=== PATIENT | female | born 1970 | race African-American/Black ===

== ENCOUNTER 2016-11-15 11:15 | Emergency (ER) | payer BC ==
[~2016-11-15] VITALS: Ht 170.2 cm; Wt 104.3 kg
[2016-11-15 11:35] VITALS: BP_SYST 155
--- NOTE | 2016-11-15 11:42 | NUR ---
Dr. Montez in triage seeing pt.
--- NOTE | 2016-11-15 11:48 | NUR ---
Patient to ER bed 7 to gown for evaluation. Side rails up. Report given to Ayala GROVES.
--- NOTE | 2016-11-15 11:50 | NUR ---
Pt. to er [id number] c/o muscle spasm like pain in her right calf past past two days, states that pain has been there now for past 2 months, so the PCP sent her to ER for medical clearence, pain 11/25
--- NOTE | 2016-11-15 11:59 | NUR ---
lab at bedside for blood draw
--- NOTE | 2016-11-15 11:59 | NUR ---
Dr. warner at bedside examining the pt.
[2016-11-15 12:09] LABS: BASOPHILS % (AUTO) 0.8 % (0.0-2.0); EOSINOPHILS # (AUTO) 0.1 K/uL (0.0-0.4); EOSINOPHILS % (AUTO) 1.8 % (0.0-4.0); HEMATOCRIT 37.8 % (36-48); HEMOGLOBIN 12.5 g/dL (12.0-16.0); LYMPHOCYTES % (AUTO) 38.7 % (20.5-51.5); MEAN CORPUSCULAR HEMOGLOBIN 29 pg (27-31); MEAN CORPUSCULAR HGB CONC 33 % (32-36); MEAN CORPUSCULAR VOLUME 88 fL (79.0-98.0); MONOCYTES # (AUTO) 0.3 K/uL (0.0-1.0); MONOCYTES % (AUTO) 5.2 % (1.7-9.3); NEUTROPHILS # (AUTO) 2.9 K/uL (1.8-7.7); NEUTROPHILS % (AUTO) 53.5 % (40.0-70.0); PLATELET COUNT (AUTO) 293 K/uL (130-430); RED CELL DISTRIBUTION WIDTH 13.8 % (9.0-15.0); WHITE BLOOD COUNT (AUTO) 5.3 K/uL (4.8-10.8)
[2016-11-15 12:17] LABS: CALCIUM 9.2 mg/dL (8.4-11.0); CREATININE 0.7 mg/dL (0.55-1.30); POTASSIUM 3.7 mmol/L (3.5-5.1)
[2016-11-15 12:22] LABS: INR 0.9 (0.8-1.2); PROTHROMBIN TIME 10.3 SECS (9.5-12.5)
--- NOTE | 2016-11-15 12:44 | NUR ---
ultra sound at bedside
[2016-11-15 13:00] VITALS: BP_SYST 131
--- NOTE | 2016-11-15 13:00 | NUR ---
Patient given written and verbal discharge instructions and verbalizes understanding. ER MD dr. warner discussed with patient the results and treatment provided. Patient in stable condition. ID arm band removed. Rx of ibuprofen given. Patient educated on pain management and to follow up with PMD. Pain Scale 0/10 Opportunity for questions provided and answered.
== END 2016-11-15 13:00 | disposition home or self-care (01) ==
LOC: SED 11:15
DX: S86.811A Strain of other muscle(s) and tendon(s) at lower leg level, right leg, initial encounter (principal); E11.9 Type 2 diabetes mellitus without complications; X58.XXXA Exposure to other specified factors, initial encounter; Y93.89 Activity, other specified; Y99.8 Other external cause status; Y92.89 Other specified places as the place of occurrence of the external cause
CPT/HCPCS: 36415; 80048; 85025; 85379; 85610-TC; 85730-TC; 93971; 99285